=== PATIENT | female | born 1960 | race Caucasian/White ===

== ENCOUNTER → 2017-05-19 | Outpatient (CLI) | payer BC | LOC: MC.RAD 08:40 | DX: Z12.31 Encounter for screening mammogram for malignant neoplasm of breast (principal); N64.89 Other specified disorders of breast ==

== ENCOUNTER → 2020-07-30 | Outpatient (CLI) | payer BC | LOC: COL.RAD | DX: R07.89 Other chest pain (principal); Z95.0 Presence of cardiac pacemaker ==